=== PATIENT | female | born 1990 | race Two or more races ===

== ENCOUNTER 2024-07-10 04:30 | Day surgery (SDC) | payer OTHER ==
[2024-07-04 09:41] LABS: HEMATOCRIT 39.7 % (36.0-45.00); HEMOGLOBIN 13.3 g/dL (12.0-15.00); MEAN CELL VOLUME 86.5 fL (80.00-100.00); MEAN CORPUSCULAR HGB CONC 33.5 g/dl (32.0-36.0); PLATELET COUNT 426 K/uL (150-450)
[2024-07-04 09:49] LABS: PH,URINE 5.5 (5.0-8.0); URINE APPEARANCE Cloudy; URINE BILIRRUBIN Negative (NEGATIVE); URINE BLOOD Small; URINE COLOR Yellow; URINE GLUCOSE Negative (NEGATIVE); URINE KETONE Negative (NEGATIVE); URINE LEUKOCYTE Trace; URINE NITRATE Negative; URINE PROTEIN Trace (NEGATIVE); URINE UROBILINOGEN 0.2 E.U./dl
[2024-07-04 09:51] LABS: URINE BACTERIA 2821.1 uL (0.0-1933); URINE EPITHELIAL CELLS 138.6 uL (0.0-38.8); URINE RBC 12.3 uL (0.0-20.8); URINE WBC 79.9 uL (0.0-23.2)
[2024-07-04 10:03] LABS: INR 1.01; PARTIAL THROMBOPLASTIN TIME 30.6 SECONDS (22.0-34.0)
[2024-07-04 10:06] LABS: PROTHROMBIN TIME 10.6 SECONDS (9.0-11.5)
[2024-07-04 10:07] LABS: ALBUMIN 3.7 gm/dL (3.4-5.0); BILIRUBIN TOTAL 0.63 mg/dL (0.3-1.2); CALCIUM 9.9 mg/dL (8.5-10.1); CREATININE SERUM 0.69 mg/dL (0.55-1.02); GFR 98.59; GLOBULINA 4.2 G/DL (2.4-3.5); POTASSIUM 4.06 mEq/L (3.5-5.1); TOTAL PROTEIN 7.9 gm/dL (6.4-8.2)
[2024-07-04 10:34] LABS: URINE CAST 0.15 uL (0.0-1.40)
[~2024-07-10 04:30] MED LIST: HYDROCHLOROTHIAZIDE; METFORMIN 750MG; MOUNJARO2.5 MG/0.5; PROPRANOLOL
[2024-07-10] MEDS ORDERED: CEFAZOLIN SODIUM 1,000 MG VIAL ONE (06:04)
[2024-07-10] MEDS ORDERED: CHLORHEXIDINE GLUCONATE 120 ML BOTTLE TOP ONE (09:43)
[2024-07-10] MEDS ORDERED: MORGIDOX100 MG PO (10:41)
[2024-07-10] MEDS ORDERED: IBU600 MG PO (10:41)
== END 2024-07-10 15:45 | disposition home or self-care (01) ==
LOC: CIR.AMB 04:30
PROVIDERS: ATTEND Obstetrics & Gynecology
DX: D25.0 Submucous leiomyoma of uterus (principal); N84.0 Polyp of corpus uteri; N92.0 Excessive and frequent menstruation with regular cycle; Z91.040 Latex allergy status; E11.9 Type 2 diabetes mellitus without complications; Z91.09 Other allergy status, other than to drugs and biological substances